=== PATIENT | male | born 1995 | race Caucasian/White ===

== ENCOUNTER 2022-07-28 08:00 | Outpatient (CLI) | payer OTHER ==
--- NOTE | 2022-07-28 10:47 | XRAY Report ---
PROCEDURE: Chest 2 View X-Ray INDICATIONS: CHEST PAIN TECHNIQUE: 2 view(s) of the chest. COMPARISON: None. FINDINGS: Surgical changes and devices: None. Lungs and pleura: No pleural effusions or pneumothorax. Lungs are clear. Mediastinum: Mediastinal contours are normal. Heart size is normal. Bones and chest wall: No suspicious bony abnormalities. Soft tissues appear unremarkable. IMPRESSION: No acute cardiopulmonary abnormality. Reviewed by: Ashvin Yung MD on 07/28/2022 10:46 AM PDT Approved by: Ashvin Yung MD on 07/28/2022 10:46 AM PDT Station ID: [id number]
== END 2022-07-28 23:59 | disposition home or self-care (01) ==
LOC: DI.N 08:00
PROVIDERS: ATTEND Nurse Practitioner
DX: R07.9 Chest pain, unspecified (principal)

== ENCOUNTER 2022-07-28 10:17 | Emergency (ER) | payer OTHER ==
[2022-07-28 11:08] LABS: BASOPHILS % (AUTO) 0.5 %; EOSINOPHILS # (AUTO) 0.1 10^3/uL (0.0-0.7); EOSINOPHILS % (AUTO) 1.2 %; HGB - HEMOGLOBIN 15.7 g/dL (14.0-18.0); LYMPHOCYTES # (AUTO) 1.5 10^3/uL (1.5-3.5); LYMPHOCYTES % (AUTO) 26.3 %; MEAN CORPUSCULAR HGB CONC 34.1 g/dL (32.0-36.0); MEAN CORPUSCULAR VOLUME 87.8 fL (80.0-94.0); MEAN PLATELET VOLUME 11.1 fL (7.4-11.4); MONOCYTES # (AUTO) 0.5 10^3/uL (0.0-1.0); MONOCYTES % (AUTO) 8.7 %; NEUTROPHILS # (AUTO) 3.6 10^3/uL (1.5-6.6); PLT - PLATELET COUNT 231 10^3/uL (130-450); RED BLOOD COUNT 5.24 10^6/uL (4.70-6.10); RED CELL DISTRIBUTION WIDTH 12.7 % (12.0-15.0); WHITE BLOOD COUNT 5.8 x10^3/uL (4.8-10.8)
--- NOTE | 2022-07-28 11:12 | ED Physician Documentation ---
PD HPI CHEST PAIN - Stated complaint Stated Complaint: CHEST PX - Chief complaint Chief Complaint: Cardiac - History obtained from History obtained from: Patient - History of Present Illness Timing - onset: How many weeks ago (2) Timing - onset during: Light activity. No: Exertion (he says it actually feels better with working out/aerobic exercise. Notes the pain most with bench presses, lifting and reaching, and with deep inspiration.) Timing - details: Abrupt onset, Still present, Waxing and waning (feels better at times and in mornings after rest, but recurs with movement and deep breathing.) Quality: Sharp, Pain Location: Left chest (localized to left sternal border medial to breast/pectoral area. No rash nor sores.) Radiation: No: Neck, Back, Abdominal Improved by: Rest Worsened by: Inspiration, Movement, Palpation. No: Eating Associated symptoms: Other (no recent travel nor inactivity.). No: Shortness of air, Nausea, Feeling faint / dizzy, Palpitations Similar symptoms before: Has not had sx before Recently seen: Clinic (he thought it would go away and so just waited on it, but still present after 2 weeks, so went to [facility] and referred to [facility], who referred pt to ER due to ECG showing likely early repolarization.) Review of Systems Constitutional: denies: Fever, Chills Nose: denies: Rhinorrhea / runny nose, Congestion Throat: denies: Sore throat Cardiac: reports: Chest pain / pressure (localized to left parasternal chest.), Other (he has continued to be able to wrok out and exercise without other symptoms.). denies: Palpitations, Pedal edema Respiratory: denies: Dyspnea, Cough, Wheezing GI: denies: Abdominal Pain, Nausea, Vomiting Skin: denies: Rash, Lesions Neurologic: denies: Generalized weakness, Near syncope PD PAST MEDICAL HISTORY - Past Medical History Cardiovascular: None Respiratory: None Neuro: None Endocrine/Autoimmune: None Musculoskeletal: None Derm: None - Present Medications Home Medications: Ambulatory Orders Medication Instructions Recorded Confirmed Naproxen 500 mg PO TID 7 Days #21 tab 07/28/22 - Allergies Allergies/Adverse Reactions: Allergies Allergy/AdvReac Type Severity Reaction Status Date / Time No Known Drug Allergies Allergy Verified 07/28/22 10:21 - Social History Does the pt smoke?: No Does the pt have substance abuse?: No - Family History Family history: reports: CAD PD ED PE NORMAL - Vitals Vital signs reviewed: Yes - General General: Alert and oriented X 3, No acute distress, Well developed/nourished - Neck Neck: Supple, no meningeal sign, No adenopathy - Cardiac Cardiac: RRR, No murmur, No rub - Respiratory Respiratory: Clear bilaterally, Other (left chest wall focally tender in parasternal cartilage/muscle medial to breast/pectoral area. No rash nor redness, skin sores. ) - Abdomen Abdomen: Soft, Non tender - Derm Derm: Normal color, Warm and dry - Extremities Extremities: No tenderness to palpate, No edema, No calf tenderness / cord - Neuro Neuro: Alert and oriented X 3, No motor deficit, Normal speech Results - Vitals Vitals: Vital Signs - 24 hr 07/28/22 07/28/22 10:19 12:18 Temperature 36.4 C L Heart Rate 74 75 Respiratory 20 19 Rate Blood Pressure 137/71 H 141/79 H O2 Saturation 96 99 Oxygen O2 Source Room air - EKG (time done) 10:23 Rate: Rate (enter#) (76) Rhythm: NSR [place]: Normal Intervals: Normal NH QRS: Normal, Poor R wave progression Ischemia: Normal ST segments, ST elevation c/w repol (V1-V3). No: ST elevation c/w ischemia, ST depression - Labs Labs: Laboratory Tests 07/28/22 07/28/22 07/28/22 11:02 11:02 11:02 WBC 5.8 RBC 5.24 Hgb 15.7 Hct 46.0 MCV 87.8 MCH 30.0 MCHC 34.1 RDW 12.7 Plt Count 231 MPV 11.1 Neut # (Auto) 3.6 Lymph # (Auto) 1.5 Harney # (Auto) 0.5 Eos # (Auto) 0.1 Baso # (Auto) 0.0 Absolute Nucleated RBC 0.00 Nucleated RBC % 0.0 Sodium 140 Potassium 3.6 Chloride 102 Carbon Dioxide 29 Anion Gap 9.0 BUN 19 Creatinine 1.0 Estimated GFR (MDRD) 91 Glucose 82 Calcium 9.3 Total Bilirubin 1.2 H AST 28 ALT 28 Alkaline Phosphatase 51 Troponin I High Sens 3.3 B-Natriuretic Peptide Total Protein 7.9 Albumin 4.8 Globulin 3.1 Albumin/Globulin Ratio 1.5 Lipase 42 07/28/22 11:02 WBC RBC Hgb Hct MCV MCH MCHC RDW Plt Count MPV Neut # (Auto) Lymph # (Auto) Harney # (Auto) Eos # (Auto) Baso # (Auto) Absolute Nucleated RBC Nucleated RBC % Sodium Potassium Chloride Carbon Dioxide Anion Gap BUN Creatinine Estimated GFR (MDRD) Glucose Calcium Total Bilirubin AST ALT Alkaline Phosphatase Troponin I High Sens B-Natriuretic Peptide 5 Total Protein Albumin Globulin Albumin/Globulin Ratio Lipase - Rads (name of study) chest xray Radiology: Prelim report reviewed (no acute process), See rad report PD MEDICAL DECISION MAKING - ED course Complexity details: reviewed results (Normal EKG, chest x-ray, blood tests.), considered differential (A week of left parasternal pain worse with breathing movement and palpation. No noted injury. Pain has stayed localized. No associated symptoms.), d/w patient ED course: pain is localized in chestwall with components sounding like chestwall (tender, associated with movement, breathing, lifting). Departure - Departure Disposition: 01 Home, Self Care Clinical Impression: Left-sided chest wall pain Condition: Stable Record reviewed to determine appropriate education?: Yes Instructions: ED Chest Pain Costochondritis Follow-Up: [facility] [Provider Group] Prescriptions: Naproxen 500 mg PO TID 7 Days #21 tab Comments: Your EKG is normal for your age and size. It has a finding called early repolarization which again is fairly normal and common for younger people. Your chest x-ray and blood tests are normal as well. No signs of heart muscle i njury, heart failure, pneumonia, collapsed lung, more serious cause for your pain. The character of your pain is consistent with chest wall inflammation at the cartilage there. Avoid heavy working out in particular with bench press and other pectoral type exercises. Anti-inflammatory of naproxen as directed for the next week. Add Tylenol every 4-6 hours if needed for pain. 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 for 5 days. Recheck if not improved during that timeframe [place] I transmitted your prescription to [facility] in [place]. Forms: Activity restrictions Discharge Date/Time: 07/28/22 12:19
--- NOTE | 2022-07-28 11:13 | XRAY Report ---
PROCEDURE: Chest 1 View X-Ray INDICATIONS: Chest pain COMMENTS: CHEST PAIN/ PT STATES CHEST PAIN PRIORS: 07/28/22 TECHNIQUE: One view of the chest was acquired. COMPARISON: None FINDINGS: Surgical changes and devices: None. Lungs and pleura: No pleural effusions or pneumothorax. Lungs are clear. Mediastinum: Mediastinal contours appear normal. Heart size is normal. Bones and chest wall: No suspicious bony lesions. Overlying soft tissues appear unremarkable. IMPRESSION: No acute cardiopulmonary abnormality. Reviewed by: Errol Gonzales on 07/28/2022 11:12 AM PDT Approved by: Errol Gonzales on 07/28/2022 11:12 AM PDT Station ID: [id number]
[2022-07-28 11:22] LABS: ALBUMIN 4.8 g/dL (3.2-5.5); ALBUMIN/GLOBULIN RATIO 1.5 (1.0-2.2); BILIRUBIN,TOTAL 1.2 mg/dL (0.2-1.0); CALCIUM 9.3 mg/dL (8.5-10.3); POTASSIUM 3.6 mmol/L (3.5-5.0); TOTAL PROTEIN 7.9 g/dL (6.7-8.2)
[2022-07-28] MEDS ORDERED: ACETAMINOPHEN 325 MG TABLET PO STA (11:26)
[2022-07-28] MEDS ORDERED: IBUPROFEN 800 MG TABLET PO STA (11:26)
[2022-07-28 12:19] VITALS: BP 141/79
== END 2022-07-28 12:19 | disposition home or self-care (01) ==
LOC: ED 10:17
DX: R07.89 Other chest pain (principal)
CPT/HCPCS: 36415; 71045; 80053; 83690; 83880; 84484; 85025; 93005; 99284; A9270